=== PATIENT | male | born 1990 | race Hispanic/Latino ===

== ENCOUNTER 2017-08-12 13:41 | Emergency (ER) | payer SELFPAY ==
[~2017-08-12 13:41] MED LIST: Sodium Chloride Irrig Solution 250 ML BOT ONE
[2017-08-12] MEDS ORDERED: Lidocaine 1% 20 ML MDV ONE (14:34)
[2017-08-12] MEDS ORDERED: Naproxen 500 MG TAB ONE (15:19)
[2017-08-12] MEDS ORDERED: Triple Antibiotic Oint 1 GM Packet ONE (15:19)
== END 2017-08-12 15:34 | disposition home or self-care (01) ==
LOC: MADERS 13:41
DX: S61.412A Laceration without foreign body of left hand, initial encounter (principal); W22.8XXA Striking against or struck by other objects, initial encounter
CPT/HCPCS: 12001; J2001